=== PATIENT | female | born 2000 | race Caucasian/White ===

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

== ENCOUNTER 2021-06-11 03:26 | Emergency (ER) | payer OTHER ==
[2021-06-11 07:38] VITALS: BP 120/70; PULSE 96
[2021-06-11 11:20] LABS: ALBUMIN 3.4 g/dl (3.4-5.0); ALK PHOS 49 U/L (45-117); BILIRUBIN,TOTAL 0.6 mg/dL (0.2-1); BLOOD UREA NITROGEN 4.3 mg/dL (7-18); CALCIUM 8.4 mg/dL (8.5-10.1); CHLORIDE 107 mmol/L (98-107); CO2 24 mmol/L (21-32); CREATININE 0.8 mg/dL (0.55-1.3); SGOT/AST 18 U/L (15-37); SGPT/ALT 16 U/L (13-61); SODIUM 138 mmol/L (136-145); TOT PROT 7.3 g/dl (6.4-8.2)
[2021-06-11 11:22] LABS: GLUCOSE,RANDOM 102 mg/dL (74-106)
[2021-06-11 13:18] LABS: BASO % 0.2 % (0-2.0); EOS % 0.1 % (0-4.5); HEMATOCRIT 36.2 % (32.4-45.2); HEMOGLOBIN 11.8 GM/dL (10.7-15.3); LYMPH % 5.2 % (8-40); MCH 25.9 pg (25.7-33.7); MCHC 32.7 g/dl (32.0-36.0); MEAN CELL VOLUME 79.1 fl (80-96); MEAN PLT VOLUME 8.1 fl (7.5-11.1); MONO % 8.6 % (3.8-10.2); NEUT % 85.9 % (42.8-82.8); PLATELET COUNT 280 10^3/uL (134-434); RBC 4.57 M/mm3 (3.60-5.2); WHITE BLOOD COUNT 16.6 K/mm3 (4.0-10.0)
== END 2021-06-11 07:39 | disposition home or self-care (01) ==
LOC: JER 03:26
DX: R13.10 Dysphagia, unspecified (principal); J03.90 Acute tonsillitis, unspecified
CPT/HCPCS: 36415; 70490-TC; 80053; 84703; 85025; 99281-25

== ENCOUNTER 2021-12-02 10:32 | Emergency (ER) | payer OTHER ==
[2021-12-02 11:06] VITALS: BMI 26.4
[2021-12-02] MEDS ORDERED: SODIUM CHLORIDE 1,000 ML IV STA (12:02)
[2021-12-02 13:08] LABS: BASO % 0.7 % (0-2.0); EOS % 0.4 % (0-4.5); HEMATOCRIT 41.8 % (32.4-45.2); HEMOGLOBIN 13.3 GM/dL (10.7-15.3); MCH 25.2 pg (25.7-33.7); MCHC 31.8 g/dl (32.0-36.0); MEAN CELL VOLUME 79.3 fl (80-96); MEAN PLT VOLUME 8.6 fl (7.5-11.1); MONO % 8.4 % (3.8-10.2); NEUT % 76.5 % (42.8-82.8); PLATELET COUNT 345 10^3/uL (134-434); RBC 5.27 M/mm3 (3.60-5.2); WHITE BLOOD COUNT 7.2 K/mm3 (4.0-10.0)
[2021-12-02 13:19] LABS: CALCIUM 9.2 mg/dL (8.5-10.1)
[2021-12-02 13:20] LABS: ALBUMIN 4.1 g/dl (3.4-5.0); BLOOD UREA NITROGEN 12.1 mg/dL (7-18)
[2021-12-02 13:23] LABS: CREATININE 0.8 mg/dL (0.55-1.3)
[2021-12-02 13:24] LABS: BILIRUBIN,TOTAL 0.5 mg/dL (0.2-1); TOT PROT 8.6 g/dl (6.4-8.2)
[2021-12-02 15:26] VITALS: BP 110/78; PULSE 78; RESP 19; TEMP 97.9
== END 2021-12-02 15:26 | disposition home or self-care (01) ==
LOC: JER 10:32
PROC: 3E0337Z Introduction of Electrolytic and Water Balance Substance into Peripheral Vein, Percutaneous Approach (ICD-10-PCS; principal; 2021-12-02)
DX: R19.7 Diarrhea, unspecified (principal)
CPT/HCPCS: 36415; 80053; 84703; 85025; 99284-25

== ENCOUNTER 2022-03-28 15:26 | Emergency (ER) | payer OTHER ==
[2022-03-28 15:39] VITALS: BP 130/82; PULSE 101; RESP 16; TEMP 99; BMI 26.6
[2022-03-28 17:43] LABS: BASO % 0.6 % (0-2.0); EOS % 0.8 % (0-4.5); HEMATOCRIT 40.4 % (32.4-45.2); HEMOGLOBIN 12.8 GM/dL (10.7-15.3); LYMPH % 17.7 % (8-40); MCH 25.4 pg (25.7-33.7); MCHC 31.7 g/dl (32.0-36.0); MEAN CELL VOLUME 80.1 fl (80-96); MONO % 8.7 % (3.8-10.2); NEUT % 72.2 % (42.8-82.8); PLATELET COUNT 317 10^3/uL (134-434); RBC 5.05 M/mm3 (3.60-5.2); WHITE BLOOD COUNT 8.8 K/mm3 (4.0-10.0)
[2022-03-28 18:05] LABS: CALCIUM 9.4 mg/dL (8.5-10.1)
[2022-03-28 18:09] LABS: CREATININE 0.8 mg/dL (0.55-1.3)
[2022-03-28 18:10] LABS: BILIRUBIN,TOTAL 0.3 mg/dL (0.2-1); TOT PROT 8.1 g/dl (6.4-8.2)
== END 2022-03-28 19:04 | disposition home or self-care (01) ==
LOC: JERFT 15:26
DX: R22.32 Localized swelling, mass and lump, left upper limb (principal)
CPT/HCPCS: 36415; 80053; 85025; 93971; 99284-25

== ENCOUNTER 2024-11-18 05:28 | Emergency (ER) | payer OTHER, BC ==
[2024-11-18 05:43] VITALS: RESP 24; BMI 27.4
[2024-11-18 06:09] VITALS: BP 114/81; PULSE 86; TEMP 97.7
== END 2024-11-18 06:46 | disposition home or self-care (01) ==
LOC: JER 05:28
DX: R09.81 Nasal congestion (principal); R06.02 Shortness of breath; F41.0 Panic disorder [episodic paroxysmal anxiety]; J00 Acute nasopharyngitis [common cold]
CPT/HCPCS: 93005; 93010; 99283-25